=== PATIENT | female | born 1985 | race American Indian/Alaskan Native ===

== ENCOUNTER 2017-03-22 15:56 | Emergency (ER) | payer SELFPAY ==
[2017-03-22 17:31] LABS: Basophils % (Auto) 0.4 % (0.0-1.8); Hemoglobin 13.1 gm/dl (10.1-14.3); Mean Corpuscular HGB Conc 33 % (30-34); Mean Corpuscular Hemoglobin 29 pg (28-32); Mean Corpuscular Volume 87 fl (79-97); Platelet Count 188 K/mm3 (140-440); Red Blood Count 4.58 M/mm3 (3.65-5.03); Red Cell Distribution Width 14.4 % (13.2-15.2); White Blood Count 8.9 K/mm3 (4.5-11.0)
[2017-03-22 17:39] LABS: Anion Gap 16 mmol/L; Blood Urea Nitrogen 12 mg/dL (7-17); Calcium 9.5 mg/dL (8.4-10.2); Carbon Dioxide 28 mmol/L (22-30); Chloride 95.9 mmol/L (98-107); Glucose 260 mg/dL (65-100); Potassium 4.2 mmol/L (3.6-5.0); Sodium 136 mmol/L (137-145)
[2017-03-22 17:56] LABS: Bacteria,Urine 1+ /HPF (Negative); Bilirubin,Urine NEG (Negative); Blood,Urine NEG (Negative); Ketones,Urine 20 mg/dL (Negative); Leukocyte Esterase,Urine NEG (Negative); Mucus,Urine FEW /HPF; Nitrite,Urine POS (Negative); Protein,Urine <15 mg/dL mg/dL (Negative); Urobilinogen,Urine < 2.0 mg/dL (<2.0); WBC,Urine < 1.0 /HPF (0.0-6.0)
[2017-03-22 20:19] VITALS: BP 118/81
[2017-03-22] MEDS ORDERED: ROCEPHIN IM ONE (22:01)
[2017-03-22] MEDS ORDERED: XYLOCAINE 1% MPF 5 mL INFILTRATI ONE (22:01)
[2017-03-22] MEDS ORDERED: NORCO 5/325 PO ONE (22:02)
--- NOTE | 2017-03-22 22:07 | Emergency Department Report ---
HPI - General Chief Complaint: Skin/Abscess/Foreign Body Time Seen by Provider: 03/22/17 21:52 - HPI HPI: Room 37 The patient is a 31-year-old female presenting with a chief complaint of left thigh erythema. The patient states 2 days ago she noticed an erythematous swelling and blister 2 on her left thigh. Patient denies any recent trauma. Patient denies history of fever. Patient states the lesions are painful gives him a score of 9/10. She states she also noticed a sore on her left breast 4 days ago. Location: Left thigh, left breast Duration: 2-4 days Quality: Pain Severity: 9/10 Modifying factors: [see above] Context: [see above] Mode of transportation: [not driving] ED Past Medical Hx - Past Medical History Previous Medical History?: Yes Hx Hypertension: Yes Hx Diabetes: Yes - Surgical History Past Surgical History?: Yes Additional Surgical History: - Family History Family history: no significant - Social History Smoking Status: Current Every Day Smoker (1/3 pack per day) Substance Use Type: Alcohol (occasional) - Medications Home Medications: Home Medications Medication Instructions Recorded Confirmed Last Taken Type HYDROcodone/APAP 5-325 [Viola 1 - 2 each PO Q6HR PRN #14 tablet 03/22/17 Unknown Rx 5/325] Sulfamethoxazole/Trimethoprim 1 each PO BID #20 tablet 03/22/17 Unknown Rx [Bactrim DS TAB] glyBURIDE [Diabeta] 5 mg PO DAILY #90 tablet 03/22/17 Unknown Rx ED Review of Systems ROS: Stated complaint: INSECT BITE/THIGH Other details as noted in HPI Comment: All other systems reviewed and negative Constitutional: denies: chills, fever Eyes: denies: eye pain, eye discharge, vision change ENT: denies: ear pain, throat pain Respiratory: denies: cough, shortness of breath, wheezing Cardiovascular: denies: chest pain, palpitations Endocrine: no symptoms reported Gastrointestinal: denies: abdominal pain, nausea, diarrhea Genitourinary: denies: urgency, dysuria, discharge Musculoskeletal: denies: back pain, joint swelling, arthralgia Skin: lesions Neurological: denies: headache, weakness, paresthesias Psychiatric: denies: anxiety, depression Hematological/Lymphatic: denies: easy bleeding, easy bruising Physical Exam - Physical Exam Vital Signs: Vital Signs 03/22/17 03/22/17 16:45 20:18 Temperature 98.3 F 97.9 F Pulse Rate 100 H 87 Respiratory 20 18 Rate Blood Pressure 131/93 Blood Pressure 118/81 [Left] O2 Sat by Pulse 100 100 Oximetry Physical Exam: GENERAL: The patient is well-developed well-nourished female lying on stretcher not appearing to be in acute distress. [] HEENT: Normocephalic. Atraumatic. Extraocular motions are intact. Patient has moist mucous membranes. NECK: Supple. Trachea midline CHEST/LUNGS: There is no respiratory distress noted. HEART/CARDIOVASCULAR: Regular. There is no tachycardia. There is no gallop rub or murmur. ABDOMEN: Abdomen is soft, nontender. Patient has normal bowel sounds. There is no abdominal distention. SKIN: There is there are 2 circular lesions of erythema with central unruptured blisters filled with purulent material on the left thigh. Proximal lesion has an approximately 6 cm diameter. Distal lesion has an approximately 4 cm diameter. There is no fluctuance outside of blisters palpated. There is no edema. There is no diaphoresis. There is a circular sore to the proximal left breast at approximately 2 o'clock position without drainage or erythema NEURO: The patient is awake, alert, and oriented. The patient is cooperative. The patient has normal speech MUSCULOSKELETAL: There is no evidence of acute injury. ED Course Vital Signs 03/22/17 03/22/17 16:45 20:18 Temperature 98.3 F 97.9 F Pulse Rate 100 H 87 Respiratory 20 18 Rate Blood Pressure 131/93 Blood Pressure 118/81 [Left] O2 Sat by Pulse 100 100 Oximetry - I & D Left Proximal Thigh Type of Procedure: Simple Site: left thigh Blade Size: 18-gauge needle aspiration I & D Procedure: betadine prep Progress: Cultures sent ED Medical Decision Making - Lab Data Result diagrams: 03/22/17 17:09 03/22/17 17:09 Laboratory Tests 03/22/17 03/22/17 03/22/17 16:50 17:09 17:09 WBC 8.9 RBC 4.58 Hgb 13.1 Hct 40.0 MCV 87 MCH 29 MCHC 33 RDW 14.4 Plt Count 188 Lymph % (Auto) 30.8 [place] % (Auto) 7.0 Eos % (Auto) 2.0 Baso % (Auto) 0.4 Lymph # 2.7 [place] # 0.6 Eos # 0.2 Baso # 0.0 Seg Neutrophils % 59.8 Seg Neutrophils # 5.3 Sodium 136 L Potassium 4.2 Chloride 95.9 L Carbon Dioxide 28 Anion Gap 16 BUN 12 Creatinine 0.6 L Estimated GFR > 60 BUN/Creatinine Ratio 20.00 Glucose 260 H POC Glucose 260 H Calcium 9.5 Urine Color Urine Turbidity Urine pH Ur Specific [place] Urine Protein Urine Glucose (UA) Urine Ketones Urine Blood Urine Nitrite Urine Bilirubin Urine Urobilinogen Ur Leukocyte Esterase Urine WBC (Auto) Urine RBC (Auto) U Epithel Cells (Auto) Urine Bacteria (Auto) Urine Mucus 03/22/17 17:36 WBC RBC Hgb Hct MCV MCH MCHC RDW Plt Count Lymph % (Auto) [place] % (Auto) Eos % (Auto) Baso % (Auto) Lymph # [place] # Eos # Baso # Seg Neutrophils % Seg Neutrophils # Sodium Potassium Chloride Carbon Dioxide Anion Gap BUN Creatinine Estimated GFR BUN/Creatinine Ratio Glucose POC Glucose Calcium Urine Color Yellow Urine Turbidity Clear Urine pH 6.0 Ur Specific [place] 1.037 H Urine Protein <15 mg/dl Urine Glucose (UA) >=500 Urine Ketones 20 Urine Blood Neg Urine Nitrite Pos Urine Bilirubin Neg Urine Urobilinogen < 2.0 Ur Leukocyte Esterase Neg Urine WBC (Auto) < 1.0 Urine RBC (Auto) 2.0 U Epithel Cells (Auto) 6.0 Urine Bacteria (Auto) 1+ Urine Mucus Few - Differential Diagnosis cellulitis, abscess Critical care attestation.: If time is entered above; I have spent that time in minutes in the direct care of this critically ill patient, excluding procedure time. ED Disposition Clinical Impression: Blister of left leg, Left leg cellulitis Disposition: - TO HOME OR SELFCARE Is pt being admited?: No Does the pt Need Aspirin: No Condition: Stable Instructions: Cellulitis (ED), Acute Wound Care (ED) Additional Instructions: Return to the emergency department immediately should you develop worsening symptoms, fever, inability to tolerate food or liquid or any other concerns. Prescriptions: glyBURIDE [Diabeta] 5 mg PO DAILY #90 tablet HYDROcodone/APAP 5-325 [Viola 5/325] 1 - 2 each PO Q6HR PRN #14 tablet PRN Reason: Pain Sulfamethoxazole/Trimethoprim [Bactrim DS TAB] 1 each PO BID #20 tablet Referrals: PRIMARY CARE, [Primary Care Provider] - 3-5 Days [facility] [Outside] - 3-5 Days Time of Disposition: 22:12
[2017-03-22] MEDS ORDERED: TRIPLE ANTIBIOTIC TP ONE (22:30)
== END 2017-03-22 22:43 | disposition home or self-care (01) ==
LOC: ED 15:56
DX: L03.116 Cellulitis of left lower limb (principal); M79.89 Other specified soft tissue disorders; I10 Essential (primary) hypertension; E11.9 Type 2 diabetes mellitus without complications
CPT/HCPCS: 10160; 36415; 80048; 81001; 82962; 85025; 87076; 87116; 87186; 96372; 99284; J0696; A6250